=== PATIENT | female | born 1990 | race American Indian/Alaskan Native ===

== ENCOUNTER 2024-05-01 21:19 | Emergency (ER) | payer SELFPAY ==
[2024-05-01] MEDS: LORazepam 1 MG Tab PO ONE (21:42)
== END 2024-05-01 22:22 | disposition home or self-care (01) ==
LOC: DL.ED 21:19
DX: F43.22 Adjustment disorder with anxiety (principal)
CPT/HCPCS: 99282; A9270; 99283